=== PATIENT | male | born 1955 | race Caucasian/White ===

== ENCOUNTER 2017-05-19 09:32 | Emergency (ER) | payer MEDICARE ==
[2017-05-19] MEDS ORDERED: IPRATROPIUM/ALBUTEROL 0.5-2.5 MG/3 ML AMPUL NEB ONE (10:26)
[2017-05-19] MEDS ORDERED: PREDNISONE 20 MG TABLET PO ONE (10:26)
--- NOTE | 2017-05-19 11:10 | RADIOLOGY REPORT (SQ) ---
EXAM DESCRIPTION: CHEST PA/LAT COMPLETED DATE/TIME: 05/19/2017 10:51 am REASON FOR STUDY: sob COMPARISON: None. TECHNIQUE: Frontal and lateral radiographic views of the chest acquired. NUMBER OF VIEWS: Two view. LIMITATIONS: None. FINDINGS: LUNGS AND PLEURA: No opacities, masses or pneumothorax. No pleural effusion. MEDIASTINUM AND HILAR STRUCTURES: Normal postoperative appearance. Intact sternal wires. HEART AND VASCULAR STRUCTURES: Heart normal size. No evidence for failure. BONES: No acute findings. HARDWARE: None in the chest. OTHER: No other significant finding. IMPRESSION: NO SIGNIFICANT RADIOGRAPHIC FINDING IN THE CHEST. TECHNICAL DOCUMENTATION: JOB ID: [id number] [facility] [employer]- All Rights Reserved
[2017-05-19] MEDS ORDERED: AZITHROMYCIN 250 MG TABLET PO ONE (11:27)
[2017-05-19] MEDS ORDERED: ALBUTEROL SULFATE HFA (90 MCG/PUFF) 8 GM MDI (1 MDI/ER DISP) IH ONE (11:27)
--- NOTE | 2017-05-19 11:31 | ER Document Report ---
ED General - General Chief Complaint: Sore Throat Stated Complaint: COUGH,HEAD AND CHEST CONGESTION Time Seen by Provider: 05/19/17 10:22 TRAVEL OUTSIDE OF THE [place] IN LAST 30 DAYS: No - HPI Patient complains to provider of: Cough congestion Notes: 2 3 days of cough congestion sore throat nasal drainage. Patient is a smoker patient continued states continues to smoke. Has not tried any medications at home denies any recent travel or antibiotics. Patient upon my evaluation resting comfortably no other complaints denies chest pain abdominal pain nausea vomiting diarrhea. Patient looks to be no obvious distress upon my evaluation. Patient is here with with similar symptoms - Related Data Allergies/Adverse Reactions: No Known Allergies Allergy (Verified 05/19/17 09:39) Past Medical History - Social History Smoking Status: Current Every Day Smoker Chew tobacco use (# tins/day): No Frequency of alcohol use: None Drug Abuse: None Family History: Reviewed & Not Pertinent Patient has suicidal ideation: No Patient has homicidal ideation: No Renal/ Medical History: Denies: Hx Peritoneal Dialysis Past Surgical History: Reports: Hx Cardiac Surgery Review of Systems - Review of Systems Constitutional: No symptoms reported EENT: No symptoms reported Cardiovascular: No symptoms reported Respiratory: Cough, Short of breath, Sputum, Wheezing Gastrointestinal: No symptoms reported Genitourinary: No symptoms reported Male Genitourinary: No symptoms reported Musculoskeletal: No symptoms reported Skin: No symptoms reported Hematologic/Lymphatic: No symptoms reported Neurological/Psychological: No symptoms reported -: Yes All other systems reviewed and negative Physical Exam - Vital signs Vitals: Temp Pulse Resp BP Pulse Ox 97.9 F 73 16 137/98 H 97 05/19/17 09:36 05/19/17 09:36 05/19/17 09:36 05/19/17 09:36 05/19/17 09:36 Interpretation: Normal - General General appearance: Appears well, Alert - HEENT Head: Normocephalic, Atraumatic Eyes: Normal Conjunctiva: Normal Cornea: Normal Extraocular movements intact: Yes Pupils: PERRL Pharynx: Normal Neck: Normal - Respiratory Respiratory status: No respiratory distress Chest status: Nontender Breath sounds: Wheezing Chest palpation: Normal - Cardiovascular Rhythm: Regular Heart sounds: Normal auscultation Murmur: No - Abdominal Inspection: Normal Distension: No distension Bowel sounds: Normal Tenderness: Nontender Organomegaly: No organomegaly - Back Back: Normal, Nontender - Extremities General upper extremity: Normal inspection, Nontender, Normal color, Normal ROM , Normal temperature General lower extremity: Normal inspection, Nontender, Normal color, Normal ROM , Normal temperature, Normal weight bearing. No: Jolynn's sign - Neurological Neuro grossly intact: Yes Cognition: Normal Orientation: AAOx4 [place] Coma Scale Eye Opening: Spontaneous [place] Coma Scale Verbal: Oriented Mary Coma Scale Motor: Obeys Commands Mary Coma Scale Total: 15 Speech: Normal Motor strength normal: LUE, RUE, LLE, RLE Sensory: Normal - Psychological Associated symptoms: Normal affect, Normal mood - Skin Skin Temperature: Warm Skin Moisture: Dry Skin Color: Normal Course - Re-evaluation Re-evalutation: 05/19/17 12:25 Chest x-ray is negative patient sounds better and feels better after breathing treatment. More likely underlying bronchitis patient was educated to stop smoking. Patient will be treated with steroids bronchodilators and Zithromax. Patient is to follow-up with her primary care physician. - Vital Signs Vital signs: Temp Pulse Resp BP Pulse Ox 97.7 F 69 20 108/67 98 05/19/17 11:47 05/19/17 11:47 05/19/17 11:47 05/19/17 11:47 05/19/17 11:47 Discharge - Discharge Clinical Impression: Bronchitis, Tobacco use Condition: Good Disposition: HOME, SELF-CARE Instructions: Bronchitis With Bronchospasm (Wheezing) ([facility]) Additional Instructions: Use the inhaler that we gave you here in ER 2 puffs every 4 hours for the next 5 days. Take steroids and antibiotics as prescribed. Please stop smoking. Prescriptions: Albuterol Sulfate [Proair HFA Inhalation Aerosol 8.5 gm MDI] 2 puff IH Q4H PRN # 1 mdi PRN Reason: Azithromycin [Zithromax] 250 mg PO DAILY #4 tablet Prednisone [Deltasone] 60 mg PO DAILY #24 tablet Forms: Smoking Cessation Education, Return to Work
[2017-05-19 11:50] VITALS: BP 108/67
== END 2017-05-19 11:51 | disposition home or self-care (01) ==
LOC: ER 09:32
DX: J40 Bronchitis, not specified as acute or chronic (principal); J02.9 Acute pharyngitis, unspecified; F17.200 Nicotine dependence, unspecified, uncomplicated
CPT/HCPCS: 94640; 99283; 71020; A9270 ×3; J3490; J7512; J7620